=== PATIENT | female | born 1950 | race Caucasian/White ===

== ENCOUNTER 2017-06-27 16:21 | Emergency (ER) | payer OTHER ==
[~2017-06-27] VITALS: Ht 157.5 cm; Wt 70.8 kg
[~2017-06-27 16:21] MED LIST: DIOVAN160 M1 PO; RELAGESIC TABLE1 TAB PO; ULTRAM50 MG PO; [UNRECOGNIZED DRUG - CODE]
[2017-06-27] MEDS ORDERED: SYNTHROID75 MCG (16:37)
== END 2017-06-27 18:10 | disposition home or self-care (01) ==
LOC: ER 16:21
DX: B34.9 Viral infection, unspecified (principal)

== ENCOUNTER → 2017-07-29 | Emergency (ER) | payer OTHER ==
[~2017-07-29] VITALS: Ht 157.5 cm; Wt 71.2 kg
[~2017-07-29] MED LIST changes: +SYNTHROID75 MCG
== END | disposition home or self-care (01) ==
LOC: ER 19:53
DX: J11.1 Influenza due to unidentified influenza virus with other respiratory manifestations (principal); B34.9 Viral infection, unspecified

== ENCOUNTER 2019-01-03 17:23 | Inpatient (IN) | payer OTHER ==
[~2019-01-03] VITALS: Ht 157.5 cm; Wt 68.9 kg
[2019-01-03] MEDS ORDERED: MONTELUKAST SOD10 MG (17:58)
--- NOTE | 2019-01-03 17:59 | NUR ---
PTE SE RECIBE POR FEVER NAUSEA Y MAREO REFIERE PTE.
[2019-01-03] MEDS ORDERED: SYNTHROID50 MCG (18:00)
[2019-01-03] MEDS ORDERED: COZAAR100 MG (18:01)
--- NOTE | 2019-01-03 18:43 | NUR ---
SE RECIBE A ANDREA DE EMERGENCIAS AREA DE FAST TRACK,PTE FEMENINA DE 68 YRS,PTE ALERTA X 3, DR SON EVALUA Y ORDENA H/L CON MEDICAMNTOS Y LABORATORIOS.
[2019-01-11] MEDS ORDERED: MONTELUKAST SOD10 MG PO (18:40)
[2019-01-11] MEDS ORDERED: PANTOPRAZOLE SO40 MG PO (18:40)
[2019-01-11] MEDS ORDERED: ALBUTEROL2.5 MG/3 M IH (18:40)
[2019-01-11] MEDS ORDERED: IPRATROPIU0.2 MG/1 M IH (18:40)
[2019-01-11] MEDS ORDERED: LOSARTAN POTAS100 MG PO (18:40)
[2019-01-11] MEDS ORDERED: LORATADINE10 MG PO (18:40)
[2019-01-11] MEDS ORDERED: LEVOTHYROXINE75 MCG PO (18:40)
[2019-01-11] MEDS ORDERED: LEVOTHYROXINE50 MCG PO (18:40)
== END 2019-01-11 18:44 | disposition home or self-care (01) | DRG 192 ==
LOC: ER 17:23 → SURH 01-04 10:07 → MEDJ 01-05 11:56
PROVIDERS: ADMIT Internal Medicine
PROC: 3E0F7GC Introduction of Other Therapeutic Substance into Respiratory Tract, Via Natural or Artificial Opening (ICD-10-PCS; principal; 2019-01-04)
DX: J47.1 Bronchiectasis with (acute) exacerbation (principal); J84.112 Idiopathic pulmonary fibrosis; R09.02 Hypoxemia; B96.5 Pseudomonas (aeruginosa) (mallei) (pseudomallei) as the cause of diseases classified elsewhere; B96.89 Other specified bacterial agents as the cause of diseases classified elsewhere; I10 Essential (primary) hypertension; K21.9 Gastro-esophageal reflux disease without esophagitis; K29.00 Acute gastritis without bleeding; E66.8 Other obesity; Z85.3 Personal history of malignant neoplasm of breast

== ENCOUNTER → 2019-12-15 09:42 | Outpatient (CLI) | payer OTHER ==
[~2019-12-15 09:42] MED LIST changes: +ALBUTEROL2.5 MG/3 M IH; +COZAAR100 MG; +IPRATROPIU0.2 MG/1 M IH; +LEVOTHYROXINE50 MCG PO; +LEVOTHYROXINE75 MCG PO; +LORATADINE10 MG PO; +LOSARTAN POTAS100 MG PO; +MONTELUKAST SOD10 MG; +MONTELUKAST SOD10 MG PO; +PANTOPRAZOLE SO40 MG PO; +SYNTHROID50 MCG
== END | disposition home or self-care (01) ==
LOC: LAB 09:42
PROVIDERS: ATTEND Internal Medicine Pulmonary Disease
DX: J47.0 Bronchiectasis with acute lower respiratory infection (principal); J20.8 Acute bronchitis due to other specified organisms; J47.1 Bronchiectasis with (acute) exacerbation

== ENCOUNTER 2019-12-15 10:32 | Outpatient (CLI) | payer OTHER | END 2019-12-15 10:35 | disposition home or self-care (01) | LOC: RAD 10:32 | PROVIDERS: ATTEND Internal Medicine Pulmonary Disease | DX: J47.1 Bronchiectasis with (acute) exacerbation (principal); C50.919 Malignant neoplasm of unspecified site of unspecified female breast ==

== ENCOUNTER → 2020-01-12 | Outpatient (CLI) | payer OTHER | END | disposition home or self-care (01) | LOC: RAD 12:09 | PROVIDERS: ATTEND Internal Medicine | DX: M54.2 Cervicalgia (principal); M54.5 Low back pain; E55.9 Vitamin D deficiency, unspecified; J47.9 Bronchiectasis, uncomplicated; E03.8 Other specified hypothyroidism; I11.9 Hypertensive heart disease without heart failure; M62.830 Muscle spasm of back ==

== ENCOUNTER 2020-01-19 09:51 | Outpatient (CLI) | payer OTHER | END 2020-01-19 10:03 | disposition home or self-care (01) | LOC: NUCLEAR 09:51 | PROVIDERS: ATTEND Internal Medicine | DX: I87.2 Venous insufficiency (chronic) (peripheral) (principal); M54.2 Cervicalgia; M54.5 Low back pain; E55.9 Vitamin D deficiency, unspecified; J47.9 Bronchiectasis, uncomplicated; E03.8 Other specified hypothyroidism; I11.9 Hypertensive heart disease without heart failure; M62.830 Muscle spasm of back ==

== ENCOUNTER 2020-01-21 09:16 | Outpatient (CLI) | payer OTHER | END 2020-01-21 09:23 | disposition home or self-care (01) | LOC: NUCLEAR 09:16 | PROVIDERS: ATTEND Internal Medicine | DX: I73.9 Peripheral vascular disease, unspecified (principal); I87.2 Venous insufficiency (chronic) (peripheral); M62.830 Muscle spasm of back; I11.9 Hypertensive heart disease without heart failure; J47.9 Bronchiectasis, uncomplicated; E03.8 Other specified hypothyroidism; E55.9 Vitamin D deficiency, unspecified; M54.5 Low back pain; M54.2 Cervicalgia ==

== ENCOUNTER → 2020-03-24 | Outpatient (CLI) | payer OTHER | END | disposition home or self-care (01) | LOC: MAMO-SONO 10:15 → SONOGRAMA 10:29 | PROVIDERS: ATTEND Obstetrics & Gynecology | DX: R10.2 Pelvic and perineal pain (principal) ==

== ENCOUNTER 2020-03-30 10:39 | Outpatient (CLI) | payer OTHER | END 2020-03-30 10:49 | disposition home or self-care (01) | LOC: NUCLEAR 10:39 | PROVIDERS: ATTEND Internal Medicine | DX: M81.0 Age-related osteoporosis without current pathological fracture (principal) ==

== ENCOUNTER 2020-04-09 07:43 | Outpatient (CLI) | payer OTHER | END 2020-04-09 15:00 | disposition home or self-care (01) | LOC: LAB 07:43 | PROVIDERS: ATTEND Specialist | DX: Z01.811 Encounter for preprocedural respiratory examination (principal); Z01.810 Encounter for preprocedural cardiovascular examination; D50.8 Other iron deficiency anemias; D68.8 Other specified coagulation defects; E03.8 Other specified hypothyroidism; R97.1 Elevated cancer antigen 125 [CA 125]; N83.209 Unspecified ovarian cyst, unspecified side; N39.0 Urinary tract infection, site not specified; E83.51 Hypocalcemia ==

== ENCOUNTER 2020-04-23 07:24 | Day surgery (SDC) | payer OTHER | END 2020-04-23 17:00 | disposition home or self-care (01) | LOC: CIR.AMB 07:24 | PROVIDERS: ATTEND Specialist | DX: N85.8 Other specified noninflammatory disorders of uterus (principal); Z20.828 Contact with and (suspected) exposure to other viral communicable diseases ==

== ENCOUNTER 2020-05-07 11:04 | Outpatient (CLI) | payer OTHER | END 2020-05-07 11:21 | disposition home or self-care (01) | LOC: MAMO-SONO 11:04 | DX: R92.2 Inconclusive mammogram (principal); N64.59 Other signs and symptoms in breast; C50.212 Malignant neoplasm of upper-inner quadrant of left female breast; N64.89 Other specified disorders of breast ==

== ENCOUNTER 2020-05-14 12:49 | Emergency (ER) | payer OTHER ==
[~2020-05-14] VITALS: Ht 157.5 cm; Wt 64.9 kg
[2020-05-14] MEDS ORDERED: NORFLEX100MG PO (16:33)
[2020-05-14] MEDS ORDERED: KETO10TA2 PO (16:33)
== END 2020-05-14 16:50 | disposition home or self-care (01) ==
LOC: ER 12:49
DX: M54.89 Other dorsalgia (principal); R05 Cough; Z03.818 Encounter for observation for suspected exposure to other biological agents ruled out

== ENCOUNTER 2020-10-01 09:24 | Emergency (ER) | payer OTHER ==
[~2020-10-01] VITALS: Ht 157.5 cm; Wt 64.9 kg
[~2020-10-01 09:24] MED LIST changes: +KETO10TA2 PO; +NORFLEX100MG PO
== END 2020-10-01 16:32 | disposition home or self-care (01) ==
LOC: ER 09:24
DX: M54.89 Other dorsalgia (principal); R51.9 Headache, unspecified; Z03.818 Encounter for observation for suspected exposure to other biological agents ruled out; R07.89 Other chest pain

== ENCOUNTER 2021-01-12 08:00 | Outpatient (CLI) | payer OTHER | END 2021-01-12 08:17 | disposition home or self-care (01) | LOC: RAD 08:00 → TOM 09:45 | PROVIDERS: ATTEND Internal Medicine Pulmonary Disease | DX: J43.1 Panlobular emphysema (principal); J43.8 Other emphysema; K82.8 Other specified diseases of gallbladder ==

== ENCOUNTER 2021-02-10 09:38 | Outpatient (CLI) | payer OTHER | END 2021-02-10 09:50 | disposition home or self-care (01) | LOC: TOM 09:38 | DX: G93.89 Other specified disorders of brain (principal); G44.89 Other headache syndrome | CPT/HCPCS: 70460; Q9965 ==

== ENCOUNTER 2021-05-01 12:53 | Emergency (ER) | payer OTHER ==
[~2021-05-01] VITALS: Ht 157.5 cm; Wt 64.0 kg
== END 2021-05-01 17:27 | disposition home or self-care (01) ==
LOC: ER 12:53
DX: R42 Dizziness and giddiness (principal); K29.70 Gastritis, unspecified, without bleeding

== ENCOUNTER 2021-05-10 08:30 | Outpatient (CLI) | payer OTHER | END 2021-05-10 08:36 | disposition home or self-care (01) | LOC: MAMO-SONO 08:30 | DX: R92.1 Mammographic calcification found on diagnostic imaging of breast (principal); N64.89 Other specified disorders of breast ==

== ENCOUNTER 2021-05-12 07:52 | Outpatient (CLI) | payer OTHER | END 2021-05-12 08:09 | disposition home or self-care (01) | LOC: TOM 07:52 | PROVIDERS: ATTEND Internal Medicine Gastroenterology | DX: K57.30 Diverticulosis of large intestine without perforation or abscess without bleeding (principal); K29.70 Gastritis, unspecified, without bleeding; K59.09 Other constipation | CPT/HCPCS: 74177; Q9965 ==

== ENCOUNTER 2021-09-19 13:59 | Outpatient (CLI) | payer OTHER | END 2021-09-19 14:02 | disposition home or self-care (01) | LOC: RAD 13:59 | PROVIDERS: ATTEND Internal Medicine | DX: M54.50 Low back pain, unspecified (principal); M54.59 Other low back pain ==

== ENCOUNTER 2022-02-22 11:37 | Outpatient (CLI) | payer OTHER | END 2022-02-22 11:43 | disposition home or self-care (01) | LOC: RAD 11:37 | PROVIDERS: ATTEND Internal Medicine | DX: I11.9 Hypertensive heart disease without heart failure (principal) ==

== ENCOUNTER 2022-05-12 10:00 | Outpatient (CLI) | payer OTHER | END 2022-05-12 10:09 | disposition home or self-care (01) | LOC: MAMO-SONO 10:00 | PROVIDERS: ATTEND Internal Medicine Hematology & Oncology | DX: D05.12 Intraductal carcinoma in situ of left breast (principal); Z85.3 Personal history of malignant neoplasm of breast ==

== ENCOUNTER 2022-06-11 09:30 | Emergency (ER) | payer OTHER ==
[~2022-06-11] VITALS: Ht 157.5 cm; Wt 59.0 kg
== END 2022-06-11 17:31 | disposition home or self-care (01) ==
LOC: ER 09:30
DX: R07.89 Other chest pain (principal); I10 Essential (primary) hypertension; Z88.2 Allergy status to sulfonamides; Z88.8 Allergy status to other drugs, medicaments and biological substances

== ENCOUNTER 2022-10-10 09:24 | Outpatient (CLI) | payer OTHER | END 2022-10-10 09:27 | disposition home or self-care (01) | LOC: RAD 09:24 | PROVIDERS: ATTEND Internal Medicine Pulmonary Disease | DX: J92.9 Pleural plaque without asbestos (principal) ==

== ENCOUNTER 2022-10-18 13:43 | Outpatient (CLI) | payer OTHER | END 2022-10-18 13:50 | disposition home or self-care (01) | LOC: LAB 13:43 | PROVIDERS: ATTEND Internal Medicine Pulmonary Disease | DX: J42 Unspecified chronic bronchitis (principal); J43.1 Panlobular emphysema ==

== ENCOUNTER 2022-11-24 11:19 | Emergency (ER) | payer OTHER ==
[~2022-11-24] VITALS: Ht 157.5 cm; Wt 65.8 kg
[2022-11-24] MEDS ORDERED: EZALLOR SPRINKL10 MG PO (11:58)
[2022-11-24] MEDS ORDERED: VALSARTAN160 MG PO (11:58)
[2022-11-24] MEDS ORDERED: XYZAL5 MG PO (14:45)
== END 2022-11-24 14:53 | disposition home or self-care (01) ==
LOC: ER 11:19
DX: J06.9 Acute upper respiratory infection, unspecified (principal); Z88.2 Allergy status to sulfonamides; J45.909 Unspecified asthma, uncomplicated; E78.00 Pure hypercholesterolemia, unspecified; K25.9 Gastric ulcer, unspecified as acute or chronic, without hemorrhage or perforation; I10 Essential (primary) hypertension; Z20.822 Contact with and (suspected) exposure to COVID-19

== ENCOUNTER 2023-01-22 12:59 | Outpatient (CLI) | payer OTHER ==
[~2023-01-22 12:59] MED LIST changes: +EZALLOR SPRINKL10 MG PO; +VALSARTAN160 MG PO; +XYZAL5 MG PO
== END 2023-01-22 13:08 | disposition home or self-care (01) ==
LOC: TOM 12:59
PROVIDERS: ATTEND Internal Medicine Pulmonary Disease
DX: J47.9 Bronchiectasis, uncomplicated (principal)

== ENCOUNTER 2023-01-24 11:43 | Outpatient (CLI) | payer OTHER | END 2023-01-24 11:49 | disposition home or self-care (01) | LOC: LAB 11:43 | PROVIDERS: ATTEND Internal Medicine Pulmonary Disease | DX: J34.9 Unspecified disorder of nose and nasal sinuses (principal); J47.9 Bronchiectasis, uncomplicated ==

== ENCOUNTER → 2023-05-02 11:16 | Outpatient (CLI) | payer OTHER | END | disposition home or self-care (01) | LOC: LAB 11:16 | PROVIDERS: ATTEND Internal Medicine Pulmonary Disease | DX: J41.8 Mixed simple and mucopurulent chronic bronchitis (principal); J43.9 Emphysema, unspecified; Z88.1 Allergy status to other antibiotic agents; Z88.2 Allergy status to sulfonamides ==

== ENCOUNTER 2023-05-15 10:26 | Outpatient (CLI) | payer OTHER | END 2023-05-15 10:37 | disposition home or self-care (01) | LOC: MAMO-SONO 10:26 | PROVIDERS: ATTEND Internal Medicine Hematology & Oncology | DX: C50.212 Malignant neoplasm of upper-inner quadrant of left female breast (principal); Z85.3 Personal history of malignant neoplasm of breast; Z12.31 Encounter for screening mammogram for malignant neoplasm of breast ==

== ENCOUNTER → 2023-06-13 11:01 | Outpatient (CLI) | payer OTHER | END | disposition home or self-care (01) | LOC: LAB 11:01 | PROVIDERS: ATTEND Internal Medicine Pulmonary Disease | DX: A31.9 Mycobacterial infection, unspecified (principal); J47.9 Bronchiectasis, uncomplicated; J42 Unspecified chronic bronchitis; A49.8 Other bacterial infections of unspecified site; Z88.2 Allergy status to sulfonamides; Z88.1 Allergy status to other antibiotic agents ==

== ENCOUNTER 2024-01-21 07:26 | Emergency (ER) | payer OTHER ==
[~2024-01-21] VITALS: Ht 157.5 cm; Wt 63.5 kg
[2024-01-21] MEDS ORDERED: PROTONIX20 MG PO (07:42)
[2024-01-21] MEDS ORDERED: MEPERIDINE HCL/PF 25 MG/ML VIAL IM ONE (08:30)
[2024-01-21] MEDS ORDERED: BARIUM SULFATE 450 ML ORAL.SUSP PO ONE (08:37)
[2024-01-21 09:03] LABS: HEMATOCRIT 36.2 % (36.0-45.00); HEMOGLOBIN 12.7 g/dL (12.0-15.00); MEAN CORPUSCULAR HEMOGLOBIN 32.6 pg (27.00-32.0); PLATELET COUNT 241 K/uL (150-450); RED BLOOD COUNT 3.89 M/uL (4.00-6.00); RED CELL DISTRIBUTION WIDTH 13.3 % (11.5-14.5)
[2024-01-21 09:27] LABS: CALCIUM 8.7 mg/dL (8.5-10.1); CREATININE SERUM 0.83 mg/dL (0.55-1.02); GFR 67.2; POTASSIUM 3.99 mEq/L (3.5-5.1)
[2024-01-21 09:53] LABS: PH,URINE 6.5 (5.0-8.0); URINE BILIRRUBIN Negative (NEGATIVE); URINE BLOOD Small; URINE COLOR Yellow; URINE GLUCOSE Negative (NEGATIVE); URINE LEUKOCYTE Negative; URINE NITRATE Negative; URINE PROTEIN Negative (NEGATIVE); URINE UROBILINOGEN 0.2 E.U./dl
[2024-01-21 09:55] LABS: URINE BACTERIA 13.8 uL (0.0-1933); URINE EPITHELIAL CELLS 2.6 uL (0.0-38.8); URINE RBC 45.8 uL (0.0-20.8); URINE WBC 3.3 uL (0.0-23.2)
[2024-01-21 10:01] LABS: URINE APPEARANCE CLEAR
== END 2024-01-21 13:21 | disposition home or self-care (01) ==
LOC: ER 07:27
PROVIDERS: Emergency Medicine
DX: R10.30 Lower abdominal pain, unspecified (principal); K57.32 Diverticulitis of large intestine without perforation or abscess without bleeding; Z88.2 Allergy status to sulfonamides; Z88.8 Allergy status to other drugs, medicaments and biological substances
CPT/HCPCS: 36415; 74176; 96372; 99283; J3490

== ENCOUNTER 2024-01-26 23:14 | Emergency (ER) | payer OTHER ==
[~2024-01-26] VITALS: Ht 157.5 cm; Wt 64.9 kg
[~2024-01-26 23:14] MED LIST changes: +PROTONIX20 MG PO
[2024-01-26] MEDS ORDERED: CIPROFLOXACIN500 MG PO (23:22)
[2024-01-26] MEDS ORDERED: METRONIDAZOLE500 MG PO (23:22)
[2024-01-27] MEDS ORDERED: 0.9 % SODIUM CHLORIDE 1,000 ML IV STA (02:09)
[2024-01-27] MEDS ORDERED: PROMETHAZINE HCL 50 MG/ML AMPUL IV STA (02:12)
[2024-01-27] MEDS ORDERED: MEPERIDINE HCL 25 MG/ML AMPUL IM STA (02:12)
[2024-01-27] MEDS ORDERED: HYOSCYAMINE SULFATE 0.125 MG TAB.SUBL SL ONE (02:15)
[2024-01-27] MEDS ORDERED: PROMETHAZINE HCL 50 MG/ML AMPUL IM ONE ×2 (02:21→05:56)
[2024-01-27] MEDS ORDERED: HYOSCYAMINE SULFATE 0.125 MG TAB.SUBL ONE (02:21)
[2024-01-27] MEDS ORDERED: CIPROFLOXACIN IN 5 % DEXTROSE 400 MG/200 ML PIGGYBAG IV STA (02:22)
[2024-01-27] MEDS ORDERED: METRONIDAZOLE/SODIUM CHLORIDE 500 MG/100 ML PIGGYBACK IV STA (02:22)
[2024-01-27] MEDS ORDERED: CIPROFLOXACIN IN 5 % DEXTROSE 400 MG/200 ML PIGGYBAG IV ONE (02:53)
[2024-01-27] MEDS ORDERED: METRONIDAZOLE/SODIUM CHLORIDE 500 MG/100 ML PIGGYBACK IV ONE (02:53)
[2024-01-27 03:06] LABS: PH,URINE 7.5 (5.0-8.0); URINE APPEARANCE Clear; URINE BILIRRUBIN Negative (NEGATIVE); URINE BLOOD Negative; URINE COLOR Yellow; URINE GLUCOSE Negative (NEGATIVE); URINE KETONE Negative (NEGATIVE); URINE LEUKOCYTE Trace; URINE NITRATE Negative; URINE PROTEIN Negative (NEGATIVE); URINE UROBILINOGEN 0.2 E.U./dl
[2024-01-27 03:07] LABS: HEMATOCRIT 34.5 % (36.0-45.00); HEMOGLOBIN 11.9 g/dL (12.0-15.00); MEAN CORPUSCULAR HEMOGLOBIN 31.4 pg (27.00-32.0); MEAN CORPUSCULAR HGB CONC 34.5 g/dl (32.0-36.0); PLATELET COUNT 304 K/uL (150-450); RED BLOOD COUNT 3.79 M/uL (4.00-6.00); RED CELL DISTRIBUTION WIDTH 13.1 % (11.5-14.5)
[2024-01-27 03:09] LABS: URINE RBC 19.3 uL (0.0-20.8)
[2024-01-27 03:10] LABS: URINE BACTERIA 1.2 uL (0.0-1933); URINE EPITHELIAL CELLS 0.3 uL (0.0-38.8); URINE WBC 0.9 uL (0.0-23.2)
[2024-01-27 03:38] LABS: INR 1.14; PARTIAL THROMBOPLASTIN TIME 33.3 SECONDS (22.0-34.0); PROTHROMBIN TIME 11.9 SECONDS (9.0-11.5)
[2024-01-27 03:39] LABS: CALCIUM 8.9 mg/dL (8.5-10.1); CREATININE SERUM 0.83 mg/dL (0.55-1.02); GFR 67.2; POTASSIUM 4.23 mEq/L (3.5-5.1)
[2024-01-27] MEDS ORDERED: PROMETHAZINE HCL 50 MG/ML AMPUL IM STA (05:51)
== END 2024-01-27 07:29 | disposition home or self-care (01) ==
LOC: ER 23:14
DX: R10.9 Unspecified abdominal pain (principal); Z88.2 Allergy status to sulfonamides
CPT/HCPCS: 36415; 74176; 96365; 99284; J0744; J2180; J2550 ×2; J3490; J7030

== ENCOUNTER 2024-01-28 16:54 | Emergency (ER) | payer OTHER ==
[~2024-01-28] VITALS: Ht 157.5 cm; Wt 59.0 kg
[~2024-01-28 16:54] MED LIST changes: +CIPROFLOXACIN500 MG PO; +METRONIDAZOLE500 MG PO
[2024-01-28 18:47] LABS: HEMATOCRIT 36.8 % (36.0-45.00); HEMOGLOBIN 12.7 g/dL (12.0-15.00); MEAN CELL VOLUME 92.8 fL (80.00-100.00); MEAN CORPUSCULAR HGB CONC 34.5 g/dl (32.0-36.0); PLATELET COUNT 313 K/uL (150-450); RED BLOOD COUNT 3.97 M/uL (4.00-6.00); RED CELL DISTRIBUTION WIDTH 13.1 % (11.5-14.5)
[2024-01-28 19:02] LABS: PH,URINE 5.5 (5.0-8.0); URINE APPEARANCE Clear; URINE BILIRRUBIN Negative (NEGATIVE); URINE BLOOD Negative; URINE COLOR Yellow; URINE GLUCOSE Negative (NEGATIVE); URINE KETONE 15 (NEGATIVE); URINE LEUKOCYTE Trace; URINE NITRATE Negative; URINE PROTEIN Trace (NEGATIVE); URINE UROBILINOGEN 0.2 E.U./dl
[2024-01-28 19:05] LABS: URINE BACTERIA 16.3 uL (0.0-1933); URINE EPITHELIAL CELLS 4.1 uL (0.0-38.8); URINE WBC 19.9 uL (0.0-23.2)
[2024-01-28 19:13] LABS: ALBUMIN 3.3 gm/dL (3.4-5.0); BILIRUBIN TOTAL 0.42 mg/dL (0.3-1.2); CALCIUM 8.4 mg/dL (8.5-10.1); CREATININE SERUM 0.88 mg/dL (0.55-1.02); GFR 62.81; GLOBULINA 3.8 G/DL (2.4-3.5); POTASSIUM 3.98 mEq/L (3.5-5.1); TOTAL PROTEIN 7.1 gm/dL (6.4-8.2)
[2024-01-28] MEDS ORDERED: 0.9 % SODIUM CHLORIDE 1,000 ML IV ONE (20:00)
[2024-01-28] MEDS ORDERED: FAMOtidine 10 MG/ML (4ML VIAL) IV ONE (20:00)
[2024-01-28] MEDS ORDERED: ONDANSETRON HCL 2 MG/ML VIAL IV ONE (20:00)
[2024-01-28] MEDS ORDERED: CIPROFLOXACIN IN 5 % DEXTROSE 400 MG/200 ML PIGGYBAG IV ONE (20:15)
[2024-01-28] MEDS ORDERED: METRONIDAZOLE/SODIUM CHLORIDE 500 MG/100 ML PIGGYBACK IV ONE (20:30)
[2024-01-28] MEDS ORDERED: CIPROFLOXACIN IN 5 % DEXTROSE 200 ML IV SCH (22:15)
[2024-01-28] MEDS ORDERED: METRONIDAZOLE/SODIUM CHLORIDE 100 ML IV SCH (22:15)
[2024-01-28] MEDS ORDERED: ONDANSETRON HCL 4 MG in 0.9 % SODIUM CHLORIDE 50 ML IV PRN (22:15)
[2024-01-28] MEDS ORDERED: FAMOTIDINE/PF 20 MG in 0.9 % SODIUM CHLORIDE 100 ML IV SCH (22:15)
[2024-01-28] MEDS ORDERED: MORPHINE SULFATE 2 MG/ML CARTRIDGE IV PRN (22:15)
== END 2024-01-28 23:30 | disposition left against medical advice (07) ==
LOC: ER 16:55
PROVIDERS: General Practice
DX: R10.2 Pelvic and perineal pain (principal); Z88.2 Allergy status to sulfonamides; Z88.8 Allergy status to other drugs, medicaments and biological substances; J45.909 Unspecified asthma, uncomplicated; K21.9 Gastro-esophageal reflux disease without esophagitis; I10 Essential (primary) hypertension; Z85.3 Personal history of malignant neoplasm of breast

== ENCOUNTER 2024-02-11 11:43 | Outpatient (CLI) | payer OTHER | END 2024-02-11 11:54 | disposition home or self-care (01) | LOC: LAB 11:43 | PROVIDERS: ATTEND Internal Medicine Pulmonary Disease | DX: J47.9 Bronchiectasis, uncomplicated (principal); J42 Unspecified chronic bronchitis ==

== ENCOUNTER 2024-05-26 12:30 | Outpatient (CLI) | payer OTHER | END 2024-05-26 12:46 | disposition home or self-care (01) | LOC: MAMO-SONO 12:30 | PROVIDERS: ATTEND Internal Medicine Hematology & Oncology | DX: D05.12 Intraductal carcinoma in situ of left breast (principal); C44.329 Squamous cell carcinoma of skin of other parts of face; Z85.3 Personal history of malignant neoplasm of breast; Z12.31 Encounter for screening mammogram for malignant neoplasm of breast ==

== ENCOUNTER 2024-06-05 08:25 | Outpatient (CLI) | payer OTHER | END 2024-06-05 08:26 | disposition home or self-care (01) | LOC: NUCLEAR 08:25 | DX: M81.0 Age-related osteoporosis without current pathological fracture (principal) ==

== ENCOUNTER 2025-04-27 10:23 | Emergency (ER) | payer OTHER ==
[~2025-04-27] VITALS: Ht 157.5 cm; Wt 61.2 kg
[2025-04-27 15:27] LABS: BASO % 0.8 % (0.1-1.2); EOS # 0.25 (0.04-0.54); EOS % 2.9 % (0.7-7.0); LYMPH # 2.01 (1.18-3.74); LYMPH % 23.7 % (19.3-53.1); MEAN PLATELET VOLUME 9.30 fl (9.4-12.4); MONO # 0.77 (0.24-0.82); MONO % 9.1 % (4.7-12.5); NEUT # 5.35 (1.56-6.13); NEUT % 63.0 % (34.0-71.1); RED CELL DISTRIBUTION WIDTH 12.4 % (11.6-14.4)
[2025-04-27 15:42] LABS: URINE APPEARANCE Turbid; URINE BILIRRUBIN Negative (NEGATIVE); URINE BLOOD Small; URINE COLOR Dark Yellow; URINE GLUCOSE Negative (NEGATIVE); URINE KETONE Trace (NEGATIVE); URINE LEUKOCYTE Large; URINE NITRATE Positive; URINE PROTEIN Trace (NEGATIVE); URINE UROBILINOGEN 1.0 E.U./dl
[2025-04-27 15:44] LABS: URINE CAST 1.46 uL (0.0-1.40); URINE EPITHELIAL CELLS 3.6 uL (0.0-38.8); URINE RBC 29.6 uL (0.0-20.8); URINE WBC 2037.0 uL (0.0-23.2)
[2025-04-27 15:57] LABS: URINE BACTERIA > 9821.5 uL (0.0-1933)
[2025-04-27 16:14] LABS: BUN CREA RATIO 23.0 (7.0-25.0); CREATININE SERUM 1.0 mg/dL (0.55-1.02); GFR 53.91; GLUCOSE FASTING 119.0 mg/dL (65-100); OSMOLALITY SERUM 284.0 MOSM/KG (275-295)
== END 2025-04-27 17:05 | disposition home or self-care (01) ==
LOC: ER 10:23
PROVIDERS: General Practice
DX: N39.0 Urinary tract infection, site not specified (principal); R10.20 Pelvic and perineal pain unspecified side; I10 Essential (primary) hypertension; E03.8 Other specified hypothyroidism; Z88.1 Allergy status to other antibiotic agents; Z88.2 Allergy status to sulfonamides